=== PATIENT | male | born 1970 | race Caucasian/White ===

== ENCOUNTER → 2017-08-07 | Outpatient (CLI) | payer OTHER | LOC: M.RAD 11:15 | DX: R06.02 Shortness of breath (principal) ==

== ENCOUNTER 2021-03-06 19:25 | Emergency (ER) | payer OTHER ==
[~2021-03-06] VITALS: Ht 172.7 cm; Wt 99.8 kg
[2021-03-06] MEDS ORDERED: METFORMIN HCL500 M3 PO (19:35)
[2021-03-06] MEDS ORDERED: OTHER (19:35)
[2021-03-06] MEDS ORDERED: ASA81BEC PO (20:45)
[2021-03-06] MEDS ORDERED: VITAMIN D21250 MCG PO (20:45)
[2021-03-06] MEDS ORDERED: OLMESARTAN-HCT1 EAC2 PO (20:46)
[2021-03-06] MEDS ORDERED: CARVEDILOL12.5 MG PO (20:46)
[2021-03-06] MEDS ORDERED: EZALLOR SPRINKL10 MG PO (20:46)
[2021-03-06] MEDS ORDERED: PIOGLITAZONE30 MG PO (20:47)
[2021-03-06] MEDS ORDERED: HYDROCODON-ACE1 EAC7 PO ×2 (21:44→21:48)
[2021-03-06] MEDS ORDERED: MELOXICAM15 MG PO ×2 (21:44→21:48)
[2021-03-06 22:00] VITALS: BP 114/79
== END 2021-03-06 22:16 | disposition home or self-care (01) ==
LOC: M.ERS 19:25
DX: S42.201A Unspecified fracture of upper end of right humerus, initial encounter for closed fracture (principal); I10 Essential (primary) hypertension; E11.9 Type 2 diabetes mellitus without complications; V29.9XXA Motorcycle rider (driver) (passenger) injured in unspecified traffic accident, initial encounter; Y93.I9 Activity, other involving external motion; Y92.413 State road as the place of occurrence of the external cause; Y99.8 Other external cause status